=== PATIENT | female | born 2000 | race Two or more races ===

== ENCOUNTER → 2025-05-07 | Outpatient (CLI) | payer OTHER, SELFPAY ==
--- NOTE | 2025-05-07 09:12 | XR_ITS ---
Examination: Fingers, right hand first digit 3 views Technique: AP, oblique, lateral views first digit right hand 3 views. Exam date and time: May 07, 2025 0918 hours INDICATIONS: Injury to the hand May 05, 2025 with first digit pain. FINDINGS: No acute fracture No dislocation IMPRESSION: No acute fracture
== END | disposition home or self-care (01) ==
PROVIDERS: PCP Family Medicine; Referring Provider Physician Assistant; Visit Provider Physician Assistant
DX: S60.931A Unspecified superficial injury of right thumb, initial encounter (principal); X58.XXXA Exposure to other specified factors, initial encounter
CPT/HCPCS: 73140